=== PATIENT | female | born 1945 | race Caucasian/White ===

== ENCOUNTER 2020-01-15 08:46 | Inpatient (IN) ==
[~2020-01-15 08:46] MED LIST: Povidone-Iodine 45 ML, Sodium Chloride IRRigation 1,000 ML IR ONE; TOTAL JOINT MIXTURE (100ML) INTRAART ONE
[2020-01-15] MEDS ORDERED: CeFAZolin Syr 2,000MG/20 ML 2,000 MG/20 ML SYRINGE IVPB ONE (09:08)
[2020-01-15] MEDS ORDERED: Ringers Solution, Lactated 1,000 ML IVC SCH ×2 (09:15→13:46)
[2020-01-15] MEDS ORDERED: *HR* OxyCODONE ER (12 HR) 10 MG TABLET PO ONE (09:43)
[2020-01-15] MEDS ORDERED: *HR* OxyCODONE Immed Rel 5 MG TABLET PO PRN ×2 (09:44→13:46)
[2020-01-15] MEDS ORDERED: Ondansetron 4 MG/2 ML VIAL IVP PRN ×2 (09:44→13:46)
[2020-01-15] MEDS ORDERED: Vancomycin 1,000 MG VIAL ONE (09:53)
[2020-01-15] MEDS ORDERED: Ethanol\\Acetic Acid\\Na Ace\\Ben 1,000 ML IRRIG.SOLN IR ONE (09:53)
[2020-01-15] MEDS ORDERED: Ropivacaine/PF 0.5% 30 ML VIAL ONE (09:56)
[2020-01-15] MEDS ORDERED: *HR* Midazolam HCl 2 MG/2 ML VIAL ONE (09:58)
[2020-01-15] MEDS ORDERED: Lidocaine -MPF 2% 2 ML VIAL ONE (10:07)
[2020-01-15] MEDS ORDERED: Ondansetron 4 MG/2 ML VIAL ONE (10:07)
[2020-01-15] MEDS ORDERED: Dexamethasone 4 MG/ML VIAL ONE (10:07)
[2020-01-15] MEDS ORDERED: *HR* FentaNYL (PF) 100 MCG/2 ML VIAL ONE ×2 (10:07→12:07)
[2020-01-15] MEDS ORDERED: *HR* Propofol 200 MG/20 ML VIAL IVP ONE (10:07)
[2020-01-15] MEDS ORDERED: EPHEDrine 50 MG/ML VIAL ONE (11:45)
[2020-01-15] MEDS ORDERED: Tranexamic Acid 1,000 MG/10 ML VIAL ONE (11:45)
[2020-01-15] MEDS: *HR* HYDROmorphone PF 0.5 MG/0.5 ML SYRINGE IVP PRN ×2 (13:00→13:25)
[2020-01-15 13:38] LABS: Hematocrit 28.5 % (35.3-44.9); Hemoglobin 8.9 g/dL (11.5-15.4)
[2020-01-15] MEDS ORDERED: Naloxone 0.4 MG/ML INJ IVP PRN (13:46)
[2020-01-15] MEDS ORDERED: D5% in Water 1,000 ML IVC PRN (13:46)
[2020-01-15] MEDS ORDERED: Sennosides 8.6 MG TABLET PO PRN (13:46)
[2020-01-15] MEDS ORDERED: *HR* Promethazine 25 MG/ML VIAL IVP PRN (13:46)
[2020-01-15] MEDS ORDERED: MOM Conc 10 ML UD.LIQ PO PRN (13:46)
[2020-01-15] MEDS ORDERED: *HR* Dextrose 50 % in Water (Vial) 50 ML VIAL IVP PRN (13:46)
[2020-01-15] MEDS ORDERED: Dextrose Gel 15 GM/37.5 ML TUBE PO PRN ×2 (13:46)
[2020-01-15] MEDS: Ibuprofen 200 MG TABLET PO PRN (14:18)
[2020-01-15] MEDS: Insulin LISPRO 300 UNITS/3 ML VIAL SQ SCH ×3 (16:00→20:09)
[2020-01-15] MEDS: CeFAZolin 2 GM/120 ML BAG IVPB SCH ×2 (16:02→23:28)
[2020-01-15] MEDS: Ascorbic Acid 500 MG TABLET PO SCH (16:09)
[2020-01-15] MEDS: sulfaSALAzine 500 MG TABLET PO SCH (20:21)
[2020-01-15] MEDS: HYDROcodone BIT/Homatropine 5 MG TABLET PO PRN (20:28)
[2020-01-16 04:44] LABS: Basophils % 0.1 %; Hematocrit 24.6 % (35.3-44.9); Hemoglobin 7.9 g/dL (11.5-15.4); Immature Granulocytes % 0.4 % (0-4); Lymphocytes # 0.6 K/mcL (0.6-4.6); Lymphocytes % 6.2 %; Mean Corpuscular HGB Conc 32.1 g/dL (31.6-35.5); Mean Corpuscular Hemoglobin 35.9 pg (28.0-33.3); Mean Corpuscular Volume 111.8 fL (83.0-100.0); Mean Platelet Volume 10.5 fL (9.4-12.4); Monocytes # 0.9 K/mcL (0.0-1.3); Monocytes % 9.8 %; Platelet Count 207 K/mcL (140-400); Red Cell Distribution Width 12.9 % (11.5-14.5); Segmented Neutrophils % 83.5 %; White Blood Count 9.6 K/mcL (4.3-11.1)
[2020-01-16 05:05] LABS: BUN/Creatinine Ratio 25 (6-26); Blood Urea Nitrogen 14 mg/dL (8-23); Calcium 8.6 mg/dL (8.6-10.3); Carbon Dioxide 27 mEq/L (23-29); Chloride 103 mEq/L (98-107); Glucose 129 mg/dL (70-105); Osmolality,Calculated 280 (280-300); Potassium 4.4 mEq/L (3.5-5.1); Sodium 134 mEq/L (136-145); eGFR For African Americans > 60 (> 60); eGFR For Non-African Americans > 60 (> 60)
[2020-01-16] MEDS: Insulin LISPRO 300 UNITS/3 ML VIAL SQ SCH ×4 (07:57→20:34)
[2020-01-16] MEDS: Vitamin E 200 UNIT (90MG) CAPSULE PO SCH (08:41)
[2020-01-16] MEDS: sulfaSALAzine 500 MG TABLET PO SCH ×2 (08:43→20:38)
[2020-01-16] MEDS: Folic Acid 1 MG TABLET PO SCH (08:43)
[2020-01-16] MEDS: Multivit/Ca/Min/Fe/FA 1 TAB TABLET PO SCH (08:43)
[2020-01-16] MEDS: Cholecalciferol (D-3) 1,000 UNIT (25MCG) TABLET PO SCH (08:43)
[2020-01-16] MEDS: Ascorbic Acid 500 MG TABLET PO SCH ×2 (08:43→17:18)
[2020-01-16] MEDS: Cyanocobalamin (B-12) 1,000 MCG TABLET PO SCH (08:44)
[2020-01-16] MEDS: Aspirin Enteric Coated 81 MG Tablet PO SCH (10:43)
[2020-01-16] MEDS: HYDROcodone BIT/Homatropine 5 MG TABLET PO PRN (20:40)
[2020-01-17 02:29] LABS: Basophils % 0.1 %; Eosinophils # 0.1 K/mcL (0.0-0.6); Eosinophils % 0.6 %; Hemoglobin 7.9 g/dL (11.5-15.4); Immature Granulocytes % 0.4 % (0-4); Lymphocytes % 9.6 %; Mean Corpuscular HGB Conc 31.6 g/dL (31.6-35.5); Mean Corpuscular Hemoglobin 35.7 pg (28.0-33.3); Mean Corpuscular Volume 113.1 fL (83.0-100.0); Mean Platelet Volume 10.7 fL (9.4-12.4); Monocytes # 1.6 K/mcL (0.0-1.3); Monocytes % 15.1 %; Platelet Count 222 K/mcL (140-400); Red Blood Count 2.21 M/mcL (3.82-4.97); Red Cell Distribution Width 13.3 % (11.5-14.5); Segmented Neutrophils % 74.2 %; White Blood Count 10.8 K/mcL (4.3-11.1)
[2020-01-17 02:51] LABS: Anisocytosis 1+ (Not Present); Macrocytosis Present (Not Present); Platelet Estimate Normal (Normal)
[2020-01-17 02:52] LABS: BUN/Creatinine Ratio 31 (6-26); Blood Urea Nitrogen 17 mg/dL (8-23); Calcium 8.6 mg/dL (8.6-10.3); Carbon Dioxide 28 mEq/L (23-29); Chloride 101 mEq/L (98-107); Glucose 129 mg/dL (70-105); Osmolality,Calculated 283 (280-300); Potassium 3.8 mEq/L (3.5-5.1); Sodium 135 mEq/L (136-145); eGFR For African Americans > 60 (> 60); eGFR For Non-African Americans > 60 (> 60)
[2020-01-17] MEDS: HYDROcodone BIT/Homatropine 5 MG TABLET PO PRN ×4 (05:11→20:13)
[2020-01-17] MEDS: Insulin LISPRO 300 UNITS/3 ML VIAL SQ SCH ×4 (08:07→21:04)
[2020-01-17] MEDS: Aspirin Enteric Coated 81 MG Tablet PO SCH (08:16)
[2020-01-17] MEDS: Folic Acid 1 MG TABLET PO SCH (08:17)
[2020-01-17] MEDS: Vitamin E 200 UNIT (90MG) CAPSULE PO SCH (08:17)
[2020-01-17] MEDS: Multivit/Ca/Min/Fe/FA 1 TAB TABLET PO SCH (08:17)
[2020-01-17] MEDS: Ascorbic Acid 500 MG TABLET PO SCH ×2 (08:17→15:43)
[2020-01-17] MEDS: sulfaSALAzine 500 MG TABLET PO SCH ×2 (08:17→20:10)
[2020-01-17] MEDS: Cholecalciferol (D-3) 1,000 UNIT (25MCG) TABLET PO SCH (08:18)
[2020-01-17] MEDS: Cyanocobalamin (B-12) 1,000 MCG TABLET PO SCH (08:18)
[2020-01-18] MEDS: Ascorbic Acid 500 MG TABLET PO SCH ×2 (08:19→16:03)
[2020-01-18] MEDS: Vitamin E 200 UNIT (90MG) CAPSULE PO SCH (08:19)
[2020-01-18] MEDS: Multivit/Ca/Min/Fe/FA 1 TAB TABLET PO SCH (08:19)
[2020-01-18] MEDS: sulfaSALAzine 500 MG TABLET PO SCH ×2 (08:20→21:02)
[2020-01-18] MEDS: Folic Acid 1 MG TABLET PO SCH (08:20)
[2020-01-18] MEDS: Cholecalciferol (D-3) 1,000 UNIT (25MCG) TABLET PO SCH (08:20)
[2020-01-18] MEDS: Aspirin Enteric Coated 81 MG Tablet PO SCH (08:20)
[2020-01-18] MEDS: Cyanocobalamin (B-12) 1,000 MCG TABLET PO SCH (08:21)
[2020-01-18] MEDS: HYDROcodone BIT/Homatropine 5 MG TABLET PO PRN (08:25)
[2020-01-18] MEDS: Insulin LISPRO 300 UNITS/3 ML VIAL SQ SCH ×4 (08:30→20:55)
[2020-01-19] MEDS: Insulin LISPRO 300 UNITS/3 ML VIAL SQ SCH ×4 (09:17→22:33)
[2020-01-19] MEDS: Aspirin Enteric Coated 81 MG Tablet PO SCH (09:24)
[2020-01-19] MEDS: Folic Acid 1 MG TABLET PO SCH (09:24)
[2020-01-19] MEDS: Cyanocobalamin (B-12) 1,000 MCG TABLET PO SCH (09:24)
[2020-01-19] MEDS: Vitamin E 200 UNIT (90MG) CAPSULE PO SCH (09:24)
[2020-01-19] MEDS: sulfaSALAzine 500 MG TABLET PO SCH ×2 (09:24→20:01)
[2020-01-19] MEDS: Ascorbic Acid 500 MG TABLET PO SCH ×2 (09:24→16:45)
[2020-01-19] MEDS: Multivit/Ca/Min/Fe/FA 1 TAB TABLET PO SCH (09:24)
[2020-01-19] MEDS: Cholecalciferol (D-3) 1,000 UNIT (25MCG) TABLET PO SCH (09:24)
[2020-01-19] MEDS: HYDROcodone BIT/Homatropine 5 MG TABLET PO PRN (09:27)
[2020-01-20] MEDS: Ibuprofen 200 MG TABLET PO PRN (05:38)
[2020-01-20] MEDS: Insulin LISPRO 300 UNITS/3 ML VIAL SQ SCH ×2 (08:25→11:42)
[2020-01-20] MEDS: sulfaSALAzine 500 MG TABLET PO SCH (09:01)
[2020-01-20] MEDS: Vitamin E 200 UNIT (90MG) CAPSULE PO SCH (09:01)
[2020-01-20] MEDS: Ascorbic Acid 500 MG TABLET PO SCH (09:02)
[2020-01-20] MEDS: Cholecalciferol (D-3) 1,000 UNIT (25MCG) TABLET PO SCH (09:02)
[2020-01-20] MEDS: Aspirin Enteric Coated 81 MG Tablet PO SCH (09:02)
[2020-01-20] MEDS: Folic Acid 1 MG TABLET PO SCH (09:02)
[2020-01-20] MEDS: Multivit/Ca/Min/Fe/FA 1 TAB TABLET PO SCH (09:02)
[2020-01-20] MEDS: Cyanocobalamin (B-12) 1,000 MCG TABLET PO SCH (09:03)
[2020-01-20 10:28] VITALS: BP 127/80
== END 2020-01-20 14:50 | disposition other institution (70) | DRG 470 ==
LOC: SAMDAY 08:46 → 3NENU 13:46
PROVIDERS: ADMIT Orthopaedic Surgery; ATTEND Orthopaedic Surgery